=== PATIENT | female | born 1980 | race Hispanic/Latino ===

== ENCOUNTER 2019-09-22 12:52 | Emergency (ER) | payer SELFPAY ==
[2019-09-22 13:59] LABS: Alanine Aminotransferase 10 units/L (7-56); Albumin 4.8 g/dL (3.9-5); BUN/Creatinine Ratio 15; Blood Urea Nitrogen 9 mg/dL (7-17); Calcium 9.7 mg/dL (8.4-10.2); Hemolysis Index 4
[2019-09-22] MEDS ORDERED: SODIUM CHLORIDE 0.9% 1000 ML 1,000 ML IV ONE (14:05)
[2019-09-22] MEDS ORDERED: ONDANSETRON 4 MG/2 ML INJ IV ONE (14:05)
[2019-09-22] MEDS ORDERED: MORPHINE 4 MG/1 ML INJ IV ONE (14:05)
[2019-09-22 14:15] LABS: Bilirubin,Urine NEG (Negative); Blood,Urine LG (Negative); Color,Urine Straw (Yellow); Protein,Urine <15 mg/dL mg/dL (Negative)
[2019-09-22 14:16] LABS: HCG Qualitative,Urine Negative (Negative)
[2019-09-22 14:38] LABS: Bilirubin,Direct < 0.2 mg/dL (0-0.2)
--- NOTE | 2019-09-22 14:55 | Cat Scan Report ---
CT of the abdomen and pelvis with contrast INDICATION: Lower abdominal pain starting this morning COMPARISON: None FINDINGS: Lung bases are clear. The liver, pancreas, adrenal glands and kidneys all appear normal. Th ere is splenomegaly present with the spleen measuring 19 cm in length. The attenuation is normal rodarte gabriele. No definite gallbladder or biliary tree abnormality. No fluid or adenopathy in the upper abdomen . Umbilical hernia contains fat. CT of the pelvis shows a normal appendix. No uterine or adnexal masses. No pelvic fluid or adenopathy . No inguinal hernia or bowel obstruction. No significant skeletal lesion. IMPRESSION: Splenomegaly. Otherwise negative study. Automated exposure control was utilized to diminish radiation dose. Signer Name: Pablo Bhardwaj MD Signed: 09/22/2019 2:51 PM Workstation Name: [id number]
[2019-09-22 15:14] LABS: Basophils % (Auto) 0.7 % (0.0-1.8); Eosinophils # (Auto) 0.1 K/mm3 (0.0-0.4); Eosinophils % (Auto) 1.6 % (0.0-4.3); Hematocrit 28.1 % (30.3-42.9); Hemoglobin 8.4 gm/dl (10.1-14.3); Lymphocytes # (Auto) 0.7 K/mm3 (1.2-5.4); Mean Corpuscular HGB Conc 30 % (30-34); Mean Corpuscular Volume 62 fl (79-97); Monocytes # (Auto) 0.3 K/mm3 (0.0-0.8); Monocytes % (Auto) 8.5 % (0.0-7.3); Red Blood Count 4.54 M/mm3 (3.65-5.03); Red Cell Distribution Width 17.9 % (13.2-15.2)
[2019-09-22 15:15] LABS: Platelet Count 177 K/mm3 (140-440)
--- NOTE | 2019-09-22 15:36 | Emergency Department Report ---
ED Abdominal Pain HPI - General Chief Complaint: Abdominal Pain Stated Complaint: LOWER ABD PAIN Time Seen by Provider: 09/22/19 13:13 Source: patient Mode of arrival: Ambulatory Limitations: No Limitations - History of Present Illness Initial Comments: This is a 38-year-old female nontoxic, well nourished in appearance, no acute signs of distress presents to the ED with c/o of nausea and abdominal pain 1 day. Patient denies any vomiting. Patient describes abdominal pain as cramping and aching with level of 8/10 to right lower abdominal area Patient denies chest pain, short of breath, fever, hemoptysis, blood in stool, chills, headache, stiff neck, numbness or tingling. Patient denies any diarrhea or constipation. Denies any blood in stool. Patient denies any recent travels. Patient stated allergies to codeine and hydromorphone. Stated has taken morphin with no allergies. MD Complaint: abdominal pain -: days(s) Location: RLQ Radiation: none Migration to: no migration Severity: mild Severity scale (0 -10): 8 Quality: cramping, aching Consistency: constant Improves With: nothing Worsens With: nothing Associated Symptoms: nausea. denies: vomiting, diarrhea, fever, chills, constipation, dysuria, hematemesis, hematochezia, melena, hematuria, anorexia, syncope - Related Data Previous Rx's Medication Instructions Recorded Last Taken Type Ferrous Sulfate [Iron 325 MG] 325 mg PO DAILY #30 tablet 09/22/19 Unknown Rx Ondansetron [Zofran Odt] 4 mg PO Q8HR PRN #12 tab.rapdis 09/22/19 Unknown Rx Allergies Allergy/AdvReac Type Severity Reaction Status Date / Time codeine Allergy Unknown Verified 09/22/19 13:00 hydromorphone [From Dilaudid] Allergy Unknown Verified 09/22/19 13:00 ED Review of Systems ROS: Stated complaint: LOWER ABD PAIN Other details as noted in HPI Constitutional: denies: chills, fever Eyes: denies: eye pain, eye discharge, vision change ENT: denies: ear pain, throat pain Respiratory: denies: cough, shortness of breath, wheezing Cardiovascular: denies: chest pain, palpitations Endocrine: no symptoms reported Gastrointestinal: abdominal pain, nausea. denies: vomiting, diarrhea, constipation, hematemesis, melena Genitourinary: denies: urgency, dysuria, discharge Musculoskeletal: denies: back pain, joint swelling, arthralgia Skin: denies: rash, lesions Neurological: denies: headache, weakness, paresthesias Psychiatric: denies: anxiety, depression Hematological/Lymphatic: denies: easy bleeding, easy bruising ED Past Medical Hx - Past Medical History Previous Medical History?: No - Surgical History Past Surgical History?: No - Social History Smoking Status: Current Every Day Smoker Substance Use Type: None - Medications Home Medications: Home Medications Medication Instructions Recorded Confirmed Last Taken Type Ferrous Sulfate [Iron 325 MG] 325 mg PO DAILY #30 tablet 09/22/19 Unknown Rx Ondansetron [Zofran Odt] 4 mg PO Q8HR PRN #12 tab.rapdis 09/22/19 Unknown Rx ED Physical Exam - General Limitations: No Limitations General appearance: alert, in no apparent distress - Head Head exam: Present: atraumatic, normocephalic - Eye Eye exam: Present: normal appearance - Neck Neck exam: Present: normal inspection, full ROM. Absent: tenderness, lymphadenopathy - Respiratory Respiratory exam: Present: normal lung sounds bilaterally. Absent: respiratory distress, wheezes, rales, rhonchi, stridor, chest wall tenderness, accessory muscle use, decreased breath sounds, prolonged expiratory - Cardiovascular Cardiovascular Exam: Present: regular rate, normal rhythm, normal heart sounds. Absent: bradycardia, tachycardia, irregular rhythm, systolic murmur, diastolic murmur, rubs, gallop - GI/Abdominal GI/Abdominal exam: Present: soft, tenderness (RLQ), normal bowel sounds. Absent : distended, guarding, rebound, rigid, diminished bowel sounds - Extremities Exam Extremities exam: Present: normal inspection, full ROM - Back Exam Back exam: Present: normal inspection, full ROM. Absent: tenderness, CVA tenderness (R), CVA tenderness (L), muscle spasm, paraspinal tenderness, vertebral tenderness, rash noted - Neurological Exam Neurological exam: Present: alert, oriented X3, normal gait - Psychiatric Psychiatric exam: Present: normal affect, normal mood - Skin Skin exam: Present: warm, dry, intact, normal color. Absent: rash ED Course Vital Signs 09/22/19 09/22/19 13:00 14:44 Temperature 98.9 F Pulse Rate 89 Respiratory 18 18 Rate Blood Pressure 103/70 [Left] O2 Sat by Pulse 100 Oximetry - Reevaluation(s) Reevaluation #1: 09/22/19 15:37 Patient is speaking in full sentences with no signs of distress noted. - Consultations Consultation #1: 09/22/19 15:40 Patient has been consulted with Dr. Ryan about patient history, physical exam, and labs/CT results and agrees to ED plan of care and discharge plan of care. ED Medical Decision Making - Lab Data Result diagrams: 09/22/19 15:04 09/22/19 13:23 - Medical Decision Making This is a 38-year-old female that presents with abdominal pain and splenomegaly. Patient is stable and was examined by me. Patient was educated to avoid any physical sports or activities that causes harm to abdomen area. Patient was also educated on increasing rich iron foods. There is no upper abdominal tenderness. Negative signs of symptoms of appendicitis. Labs obtained. UA obtained. CT of abdomen obtained and dictated by the radiologist. Patient is notified of the report with no questions noted by the patient. Vital signs are stable prior to discharge. Patient received medical treatment in the ED which patient stated symptoms has resovled and subsided. Was instructed note to operate any machinery due to possible drowsiness and stated someone will drive the patient home. A by mouth challenge has been obtained and patient tolerated well with no nausea vomiting. Patient was notified of strict precatuions of appendictis symptoms and to return to the ED if symptoms occurs as soon as possible. Patient was also instructed to Follow-up with a primary care doctor in 3-5 days or if symptoms worsen and continue return to emergency room as soon as possible. At time of discharge, the patient does not seem toxic or ill in appearance. No acute signs of distress noted. Patient agrees to discharge treatment plan of care. No further questions noted by the patient. Critical care attestation.: If time is entered above; I have spent that time in minutes in the direct care of this critically ill patient, excluding procedure time. 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 Avoid physical activities and sports due to splenomegaly. Prescriptions: Ferrous Sulfate [Iron 325 MG] 325 mg PO DAILY #30 tablet Ondansetron [Zofran Odt] 4 mg PO Q8HR PRN #12 tab.rapdis PRN Reason: Nausea Referrals: PRIMARY CAREMD [Primary Care Provider] - 3-5 Days THONY BURROUGHS MD [Staff Physician] - 3-5 Days [facility] [Provider Group] - 3-5 Days Forms: Work/School Release Form(ED)
[2019-09-22 16:04] VITALS: BP 112/68
== END 2019-09-22 16:00 | disposition home or self-care (01) ==
LOC: ED 12:52
DX: D50.9 Iron deficiency anemia, unspecified (principal); R16.1 Splenomegaly, not elsewhere classified
CPT/HCPCS: 36415; 74177; 80048; 80076; 81001; 81025; 84702; 85025; 96374; 96375; 99284; J2270; J2405; J7030; Q9967